=== PATIENT | female | born 1990 | race Caucasian/White ===

== ENCOUNTER 2020-05-02 10:31 | Emergency (ER) | payer OTHER ==
[2020-05-02] MEDS ORDERED: DIPH/PERTUSS(ACELL)/TETANUS VAC/PF 0.5 ML SYR (>=10YO) IM ONE (11:01)
[2020-05-02] MEDS ORDERED: HYDROCODONE/ACETAMINOPHEN 5-325 MG TABLET PO ONE (11:01)
[2020-05-02] MEDS ORDERED: LIDOCAINE 1% INJ-PF (10 MG/ML) 30 ML SDV INJ ONE ×2 (11:02→15:45)
--- NOTE | 2020-05-02 11:03 | ER Document Report ---
ED Medical Screen (RME) - General Chief Complaint: Dog Bite Stated Complaint: RIGHT THUMB INJURY Time Seen by Provider: 05/02/20 10:54 - HPI Notes: 05/02/20 11:02 29-year-old female to the emergency department with complaints of multiple dog bites to both her hands that began this morning just prior to arrival. She states that her husky dog got out of the house this morning. She went to try to retrieve him and he bit her. She states she is not up-to-date on her tetanus shot. She is not sure of her dog's immunization status. She states that her biggest bite is to her left thumb. She states her pain is a 6 out of 10 with 10 being the worst. She is right-hand dominant. She has a dog bite to the right middle finger, left thumb, left forearm. I performed a brief medical screening exam on the patient determined that the patient needs further evaluation and management by main side provider. I have placed initial orders to help expedite care. - Related Data Allergies/Adverse Reactions: Penicillins Allergy (Verified 05/02/20 10:53) Sulfa (Sulfonamide Antibiotics) Allergy (Verified 05/02/20 10:53) Past Medical History - Social History Frequency of alcohol use: Social Drug Abuse: None Physical Exam - Vital signs Vitals: Temp Pulse Resp BP Pulse Ox 98.2 F 99 18 128/86 H 99 05/02/20 10:39 05/02/20 10:39 05/02/20 10:39 05/02/20 10:39 05/02/20 10:39 Course - Vital Signs Vital signs: Temp Pulse Resp BP Pulse Ox 98.2 F 99 18 128/86 H 99 05/02/20 10:39 05/02/20 10:39 05/02/20 10:39 05/02/20 10:39 05/02/20 10:39
--- NOTE | 2020-05-02 12:00 | RADIOLOGY REPORT (SQ) ---
EXAM DESCRIPTION: HAND BILATERAL 3 VIEWS IMAGES COMPLETED DATE/TIME: 05/02/2020 11:30 am REASON FOR STUDY: dog bite, eval fracture/retained fb COMPARISON: None. EXAM PARAMETERS: NUMBER OF VIEWS: Three views. TECHNIQUE: AP, lateral and oblique radiographic images acquired of the right and left hand. LIMITATIONS: None. FINDINGS: MINERALIZATION: Normal. BONES: Avulsion injury of the tuft of the left thumb. Both soft tissue and bone irregularity. The t uft fracture is transverse in orientation. The right hand is intact. JOINTS: No effusions. SOFT TISSUES: No soft tissue swelling. No foreign body. OTHER: No other significant finding. IMPRESSION: Avulsion type injury of the left thumb. Right hand is intact. TECHNICAL DOCUMENTATION: JOB ID: [id number] [employer]- All Rights Reserved Reading location - IP/workstation name: [email or web address]
[2020-05-02] MEDS ORDERED: BUPIVACAINE HCL 0.5 % INJ/PF 30 ML SDV INJ ONE (16:19)
--- NOTE | 2020-05-02 16:24 | ER Document Report ---
ED Animal Bite - General Chief Complaint: Dog Bite Stated Complaint: RIGHT THUMB INJURY Time Seen by Provider: 05/02/20 16:00 Primary Care Provider: SHANTELL STAUFFER DO [Primary Care Provider] - Follow up as needed STEFANY HAQ MD [ACTIVE STAFF] - Follow up tomorrow KINGS SANCHEZ DO [ACTIVE STAFF] - Follow up as needed Mode of Arrival: Ambulatory Information source: Patient Notes: Patient states that she got bit by her dog this morning when she was trying to get him to go somewhere he did not want to go. Patient states that she believes her gives him his rabies vaccination. Dog is otherwise appeared well and has not appeared sick. Patient with laceration to the left thumb, right fourth finger and puncture wound to the left forearm. Patient is right-hand dominant. - HPI Location of injury: [place] Severity of injury: Bitten Onset: This morning Quality of pain: Achy Pain Level: 4 Type of animal: Dog Appearance of animal: Appeared well Animal captured or known: Yes - Related Data Allergies/Adverse Reactions: Penicillins Allergy (Verified 05/02/20 10:53) Sulfa (Sulfonamide Antibiotics) Allergy (Verified 05/02/20 10:53) Past Medical History - General Information source: Patient - Social History Smoking Status: Never Smoker Frequency of alcohol use: Social Drug Abuse: None Occupation: Youth Manager Lives with: Spouse/Significant other Family History: Reviewed & Not Pertinent Patient has homicidal ideation: No - Medical History Medical History: Negative Surgical Hx: Negative Review of Systems - Review of Systems Constitutional: No symptoms reported. denies: Fever EENT: No symptoms reported Cardiovascular: No symptoms reported Respiratory: No symptoms reported Gastrointestinal: No symptoms reported Genitourinary: No symptoms reported Female Genitourinary: No symptoms reported Musculoskeletal: Joint pain - Left thumb, right fourth finger Skin: Other - Laceration to bilateral hand, puncture wound to left forearm Hematologic/Lymphatic: No symptoms reported Neurological/Psychological: No symptoms reported Physical Exam - Vital signs Vitals: Temp Pulse Resp BP Pulse Ox 98.2 F 99 18 128/86 H 99 05/02/20 10:39 05/02/20 10:39 05/02/20 10:39 05/02/20 10:39 05/02/20 10:39 - General General appearance: Appears well, Alert In distress: None - HEENT Head: Normocephalic, Atraumatic Eyes: Normal Conjunctiva: Normal Nasal: Normal Mouth/Lips: Normal Mucous membranes: Normal Neck: Normal, Supple. No: Lymphadenopathy - Respiratory Respiratory status: No respiratory distress Breath sounds: Normal - Cardiovascular Rhythm: Regular Heart sounds: S1 appreciated, S2 appreciated Pulses: Normal: Radial - Back Back: Normal - Extremities General upper extremity: Tender - Tenderness to right fourth finger, left thumb General lower extremity: Normal inspection Hand: Tender - Tenderness to right fourth finger to the PIP joint, patient with full range of motion against resistance. Patient with tenderness to distal tip of left thumb, full range of motion to left thumb., Laceration, Swelling. No: Nail injury, Tendon deficit - Neurological Neuro grossly intact: Yes Cognition: Normal Orientation: AAOx4 [place] Coma Scale Eye Opening: Spontaneous [place] Coma Scale Verbal: Oriented [place] Coma Scale Motor: Obeys Commands [place] Coma Scale Total: 15 - Psychological Associated symptoms: Normal affect, Normal mood - Skin Skin Temperature: Warm Skin Moisture: Dry Skin Color: Normal Skin irregularity: Laceration - 1.5 cm laceration to the distal tip of the left thumb, wound does not involve the nail although there does appear to be a wound that continues under the nail. Patient with a 0.5 cm laceration to the left forearm. Patient with 1 cm laceration to the radial aspect of the right fourth finger. Irregularity with: Tenderness Course - Re-evaluation Re-evalutation: 05/02/20 16:23 Patient has underlying tuft fracture to the left thumb with overlying laceration. Patient with discoloration under the nail that looks worrisome for possible nailbed injury although there is no trauma to the nail itself. Consulted with Dr. Savage, Dr. Savage to bedside for examination. He advises consultation with orthopedics for advisement given concerns about suturing over an animal bite to the thumb with underlying fracture. Call placed for consultation with Dr. Haq. 05/02/20 17:[address] Haq regarding patient presentation and planned wound management. He does not recommend any closure of the wound at this time. He does advise anesthetizing the thumb and trimming the distal tip of the nail to evaluate whether or not the laceration continues under the nail. He states this way if the wound becomes infected the nail is not preventing any drainage of purulence if wound becomes infected. 05/02/20 18:30 After wound was irrigated with copious amounts of water, having irrigated wound under the running tab for 10 minutes. Nail was trimmed. Laceration does appear to continue under the nail. Patient advised of Dr. Haq's accommodation not to suture wound closed at this time due to concern about high risk of infection. Patient educated on wound management as well as signs or symptoms to return immediately. Patient will be placed on antibiotics and is encouraged to follow- up with orthopedic doctor for further evaluation. - Vital Signs Vital signs: Temp Pulse Resp BP Pulse Ox 98.8 F 80 14 123/80 100 05/02/20 19:05 05/02/20 19:05 05/02/20 19:05 05/02/20 19:05 05/02/20 19:05 - Diagnostic Test Radiology reviewed: Image reviewed, Reports reviewed Procedures - Immobilization Left Thumb Pre-Proc Neuro Vasc Exam: Normal Immobilizer type: Finger splint (Static) Performed by: PCT Post-Proc Neuro Vasc Exam: Normal Alignment checked and good: Yes Discharge - Discharge Clinical Impression: Open fracture of tuft of distal phalanx of left thumb Dog bite Qualifiers: Encounter type: initial encounter Qualified Code(s): W54.0XXA - Bitten by dog, initial encounter Thumb laceration Qualifiers: Encounter type: initial encounter Damage to nail status: without damage Foreign body presence: without foreign body Laterality: left Qualified Code(s): S61.012A - Laceration without foreign body of left thumb without damage to nail, initial encounter Finger laceration Qualifiers: Encounter type: initial encounter Finger: ring finger Damage to nail status: without damage Foreign body presence: without foreign body Laterality: right Qualified Code(s): S61.214A - Laceration without foreign body of right ring finger without damage to nail, initial encounter Puncture wound of forearm, left Qualifiers: Encounter type: initial encounter Qualified Code(s): S51.832A - Puncture wound without foreign body of left forearm, initial encounter Condition: Stable Disposition: HOME, SELF-CARE Instructions: Animal Bites ([facility]), Antibiotic Ointment Protection ([facility]), Doxycycline ([facility]), Laceration Care ([facility]), Metronidazole ([facility]), Open Finger Tuft Fracture ([facility]), Oral Narcotic Medication ([facility]), Prophylactic Antibiotic ([facility]), Tetanus Immunization Given ([facility]) Additional Instructions: Return immediately for any new or worsening symptoms Followup with your primary care provider, call tomorrow to make a followup appointment Change dressing twice a day, monitor for any redness, streaking, purulent drainage, fever or any worsening of symptoms. Follow-up with orthopedics, call tomorrow for an appointment Prescriptions: Doxycycline Hyclate 100 mg PO BID #20 tablet. Metronidazole [Flagyl 500 mg Tablet] 500 mg PO TID #30 tablet Hydrocodone/Acetaminophen [[place] 5-325 mg Tablet] 1 tab PO Q6 PRN #12 tablet PRN Reason: Forms: Return to Work Referrals: SHANTELL STAUFFER DO [Primary Care Provider] - Follow up as needed KINGS SANCHEZ DO [ACTIVE STAFF] - Follow up as needed STEFANY HAQ MD [ACTIVE STAFF] - Follow up tomorrow
[2020-05-02] MEDS ORDERED: OXYCODONE-ACETAMINOPHEN 5-325 MG TABLET PO ONE (16:25)
[2020-05-02] MEDS ORDERED: METRONIDAZOLE 500 MG TABLET PO ONE (16:25)
[2020-05-02] MEDS ORDERED: DOXYCYCLINE HYCLATE 100 MG TABLET PO ONE (16:25)
[2020-05-02 19:07] VITALS: BP 123/80
== END 2020-05-02 19:07 | disposition home or self-care (01) ==
LOC: ER 10:31
DX: S62.522A Displaced fracture of distal phalanx of left thumb, initial encounter for closed fracture (principal); S61.012A Laceration without foreign body of left thumb without damage to nail, initial encounter; S51.832A Puncture wound without foreign body of left forearm, initial encounter; S61.214A Laceration without foreign body of right ring finger without damage to nail, initial encounter; W54.0XXA Bitten by dog, initial encounter; Z23 Encounter for immunization; Z20.3 Contact with and (suspected) exposure to rabies
CPT/HCPCS: 99284; 73130; 90715; J3490